=== PATIENT | female | born 1990 | race Hispanic/Latino ===

== ENCOUNTER 2018-02-26 12:49 | Emergency (ER) | payer SELFPAY ==
[2018-02-26 14:45] LABS: Basophils # (Auto) 0.1 K/mm3 (0.0-0.1); Basophils % (Auto) 0.7 % (0.0-1.8); Eosinophils # (Auto) 0.3 K/mm3 (0.0-0.4); Eosinophils % (Auto) 4.2 % (0.0-4.3); Hematocrit 38.8 % (30.3-42.9); Hemoglobin 13.3 gm/dl (10.1-14.3); Lymphocytes # (Auto) 1.9 K/mm3 (1.2-5.4); Lymphocytes % (Auto) 26.9 % (13.4-35.0); Mean Corpuscular HGB Conc 34 % (30-34); Mean Corpuscular Hemoglobin 29 pg (28-32); Mean Corpuscular Volume 85 fl (79-97); Monocytes # (Auto) 0.5 K/mm3 (0.0-0.8); Monocytes % (Auto) 7.3 % (0.0-7.3); Platelet Count 275 K/mm3 (140-440); Red Blood Count 4.56 M/mm3 (3.65-5.03); Red Cell Distribution Width 14.1 % (13.2-15.2)
[2018-02-26 14:56] LABS: BUN/Creatinine Ratio 9; Blood Urea Nitrogen 6 mg/dL (7-17); Calcium 9.3 mg/dL (8.4-10.2); Hemolysis Index 4
[2018-02-26 15:28] LABS: Bilirubin,Urine NEG (Negative); Blood,Urine MOD (Negative); Calcium Oxalate Crystals,Urine 3+; Color,Urine Yellow (Yellow); Mucus,Urine FEW /HPF; Protein,Urine <15 mg/dL mg/dL (Negative); Urobilinogen,Urine < 2.0 mg/dL (<2.0)
[2018-02-26 15:37] LABS: Benzodiazepines Screen,Urine PRESUMPTIVE NEGATIVE; Cannabinoid Screen,Urine PRESUMPTIVE NEGATIVE; Cocaine Screen,Urine PRESUMPTIVE NEGATIVE; Methadone Screen,Urine PRESUMPTIVE NEGATIVE; Opiate Screen,Urine PRESUMPTIVE NEGATIVE
[2018-02-26 15:49] LABS: Amphetamine Screen,Urine PRESUMPTIVE POSITIVE
[2018-02-26 20:58] VITALS: BP 112/79
--- NOTE | 2018-02-26 21:27 | Emergency Department Report ---
ED General Adult HPI - General Chief complaint: Medical Clearance Stated complaint: ANXIETY AND CHEST PAINS Time Seen by Provider: 02/26/18 20:50 Source: patient Mode of arrival: Ambulatory Limitations: No Limitations - History of Present Illness Initial comments: 27-year-old female with a past medical history of fibromyalgia, chronic pain management, and Chiari malformation just relocated here from [place] about 2 weeks ago presents to the hospital complaining of generalized pain. Typically patient takes oxycodone 15-30 mg 4 times a day and oxymorphone 3 times a day as well. She ran out of medication 3 days ago. She claims exacerbation of her chronic pain neck pain and back pain. She denies nausea, vomiting, or diarrhea. Patient is a smoker and reports productive cough without fever. No shortness of breath or chest pain reported. Patient is requesting follow-up for her chronic conditions. Patient's UDS positive for amphetamines she denies Adderall or amphetamine use Severity scale (0 -10): 1 - Related Data Previous Rx's Medication Instructions Recorded Last Taken Type ALBUTEROL Inhaler [ProAir HFA 2 puff IH QID PRN #1 inhalation 02/26/18 Unknown Rx Inhaler] Ibuprofen [Motrin] 800 mg PO Q8HR PRN #30 tablet 02/26/18 Unknown Rx Ondansetron [Zofran Odt] 4 mg PO Q8HR #20 tab.rapdis 02/26/18 Unknown Rx Oxycodone HCl/Acetaminophen 1 each PO Q6HR PRN #20 tablet 02/26/18 Unknown Rx [Percocet 10/325 mg] Allergies Allergy/AdvReac Type Severity Reaction Status Date / Time No Known Allergies Allergy Unverified 02/26/18 13:11 ED Review of Systems ROS: Stated complaint: ANXIETY AND CHEST PAINS Other details as noted in HPI Comment: All other systems reviewed and negative ED Past Medical Hx - Past Medical History Additional medical history: Fibromyalgia and Chiari malformation. - Surgical History Past Surgical History?: No - Social History Smoking Status: Current Every Day Smoker Substance Use Type: Other - Medications Home Medications: Home Medications Medication Instructions Recorded Confirmed Last Taken Type ALBUTEROL Inhaler [ProAir HFA 2 puff IH QID PRN #1 inhalation 02/26/18 Unknown Rx Inhaler] Ibuprofen [Motrin] 800 mg PO Q8HR PRN #30 tablet 02/26/18 Unknown Rx Ondansetron [Zofran Odt] 4 mg PO Q8HR #20 tab.rapdis 02/26/18 Unknown Rx Oxycodone HCl/Acetaminophen 1 each PO Q6HR PRN #20 tablet 02/26/18 Unknown Rx [Percocet 10/325 mg] ED Physical Exam - General Limitations: No Limitations - Other Other exam information: General: No limitations, patient is alert in no acute distress Head exam: Atraumatic, normocephalic Eyes exam: Normal appearance, pupils equal reactive to light, extraocular movements intact ENT: Moist mucous membrane, normal oropharynx Neck exam: Normal inspection, full range of motion, no meningismus nontender Respiratory exam: very minimal wheezed no tachypnea or accessory muscle use Cardiovascular: Normal rate and rhythm, normal heart sounds Abdomen: Soft, nondistended, and nontender, with normal bowel sounds, no rebound, or guarding Extremity: Full range of motion normal inspection no deformity Back: Normal Inspection, full range of motion, generalized tenderness Neurologic: Alert, oriented x3, cranial nerves intact, no motor or sensory deficit Psychiatric: normal affect, normal mood Skin: Warm, dry, intact ED Course Vital Signs 02/26/18 02/26/18 02/26/18 20:56 21:40 22:44 Temperature 98.5 F Pulse Rate 103 H Respiratory 18 18 18 Rate Blood Pressure 112/79 [Right] O2 Sat by Pulse 100 Oximetry 02/26/18 02/26/18 22:45 22:53 Temperature 98.6 F Pulse Rate 84 Respiratory 18 18 Rate Blood Pressure 112/79 [Right] O2 Sat by Pulse 98 Oximetry - Reevaluation(s) Reevaluation #1: 02/26/18 22:28 Patient continues to have pain despite IV Dilaudid 1 mg. Given additional Dilaudid and Toradol. Patient advised to follow up with primary care doctor for further referral to manage chronic pain. ED Medical Decision Making - Lab Data Result diagrams: 02/26/18 14:28 02/26/18 14:28 Lab Results 02/26/18 02/26/18 02/26/18 Range/Units 14:28 14:28 14:28 WBC (4.5-11.0) K/mm3 RBC (3.65-5.03) M/mm3 Hgb (10.1-14.3) gm/dl Hct (30.3-42.9) % MCV (79-97) fl MCH (28-32) pg MCHC (30-34) % RDW (13.2-15.2) % Plt Count (140-440) K/mm3 Lymph % (Auto) (13.4-35.0) % [place] % (Auto) (0.0-7.3) % Eos % (Auto) (0.0-4.3) % Baso % (Auto) (0.0-1.8) % Lymph # (1.2-5.4) K/mm3 [place] # (0.0-0.8) K/mm3 Eos # (0.0-0.4) K/mm3 Baso # (0.0-0.1) K/mm3 Seg Neutrophils % (40.0-70.0) % Seg Neutrophils # (1.8-7.7) K/mm3 Sodium 143 (137-145) mmol/L Potassium 3.0 L (3.6-5.0) mmol/L Chloride 104.2 (98-107) mmol/L Carbon Dioxide 24 (22-30) mmol/L Anion Gap 18 mmol/L BUN 6 L (7-17) mg/dL Creatinine 0.7 (0.7-1.2) mg/dL Estimated GFR > 60 ml/min BUN/Creatinine Ratio 9 % Glucose 94 (65-100) mg/dL Calcium 9.3 (8.4-10.2) mg/dL Magnesium (1.7-2.3) mg/dL Total Creatine Kinase (30-135) units/L Urine Color (Yellow) Urine Turbidity (Clear) Urine pH (5.0-7.0) Ur Specific [place] (1.003-1.030) Urine Protein (Negative) mg/dL Urine Glucose (UA) (Negative) mg/dL Urine Ketones (Negative) mg/dL Urine Blood (Negative) Urine Nitrite (Negative) Urine Bilirubin (Negative) Urine Urobilinogen (<2.0) mg/dL Ur Leukocyte Esterase (Negative) Urine WBC (Auto) (0.0-6.0) /HPF Urine RBC (Auto) (0.0-6.0) /HPF U Epithel Cells (Auto) (0-13.0) /HPF Calcium Oxalate Crystal Urine Mucus /HPF Urine HCG, Qual (Negative) Salicylates < 0.3 L (2.8-20.0) mg/dL Urine Opiates Screen Urine Methadone Screen Acetaminophen < 5.0 L (10.0-30.0) ug/mL Ur Barbiturates Screen Ur Phencyclidine Scrn Ur Amphetamines Screen U Benzodiazepines Scrn Urine Cocaine Screen U Marijuana (THC) Screen Drugs of Abuse Note Plasma/Serum Alcohol (0-0.07) % 02/26/18 02/26/18 02/26/18 Range/Units 14:28 14:28 14:48 WBC 7.0 (4.5-11.0) K/mm3 RBC 4.56 (3.65-5.03) M/mm3 Hgb 13.3 (10.1-14.3) gm/dl Hct 38.8 (30.3-42.9) % MCV 85 (79-97) fl MCH 29 (28-32) pg MCHC 34 (30-34) % RDW 14.1 (13.2-15.2) % Plt Count 275 (140-440) K/mm3 Lymph % (Auto) 26.9 (13.4-35.0) % [place] % (Auto) 7.3 (0.0-7.3) % Eos % (Auto) 4.2 (0.0-4.3) % Baso % (Auto) 0.7 (0.0-1.8) % Lymph # 1.9 (1.2-5.4) K/mm3 [place] # 0.5 (0.0-0.8) K/mm3 Eos # 0.3 (0.0-0.4) K/mm3 Baso # 0.1 (0.0-0.1) K/mm3 Seg Neutrophils % 60.9 (40.0-70.0) % Seg Neutrophils # 4.2 (1.8-7.7) K/mm3 Sodium (137-145) mmol/L Potassium (3.6-5.0) mmol/L Chloride (98-107) mmol/L Carbon Dioxide (22-30) mmol/L Anion Gap mmol/L BUN (7-17) mg/dL Creatinine (0.7-1.2) mg/dL Estimated GFR ml/min BUN/Creatinine Ratio % Glucose (65-100) mg/dL Calcium (8.4-10.2) mg/dL Magnesium (1.7-2.3) mg/dL Total Creatine Kinase (30-135) units/L Urine Color Yellow (Yellow) Urine Turbidity Clear (Clear) Urine pH 6.0 (5.0-7.0) Ur Specific [place] 1.011 (1.003-1.030) Urine Protein <15 mg/dl (Negative) mg/dL Urine Glucose (UA) Neg (Negative) mg/dL Urine Ketones Neg (Negative) mg/dL Urine Blood Mod (Negative) Urine Nitrite Neg (Negative) Urine Bilirubin Neg (Negative) Urine Urobilinogen < 2.0 (<2.0) mg/dL Ur Leukocyte Esterase Neg (Negative) Urine WBC (Auto) 1.0 (0.0-6.0) /HPF Urine RBC (Auto) 4.0 (0.0-6.0) /HPF U Epithel Cells (Auto) 2.0 (0-13.0) /HPF Calcium Oxalate Crystal 3+ Urine Mucus Few /HPF Urine HCG, Qual (Negative) Salicylates (2.8-20.0) mg/dL Urine Opiates Screen Urine Methadone Screen Acetaminophen (10.0-30.0) ug/mL Ur Barbiturates Screen Ur Phencyclidine Scrn Ur Amphetamines Screen U Benzodiazepines Scrn Urine Cocaine Screen U Marijuana (THC) Screen Drugs of Abuse Note Plasma/Serum Alcohol < 0.01 (0-0.07) % 02/26/18 02/26/18 02/26/18 Range/Units 14:48 Unknown Unknown WBC (4.5-11.0) K/mm3 RBC (3.65-5.03) M/mm3 Hgb (10.1-14.3) gm/dl Hct (30.3-42.9) % MCV (79-97) fl MCH (28-32) pg MCHC (30-34) % RDW (13.2-15.2) % Plt Count (140-440) K/mm3 Lymph % (Auto) (13.4-35.0) % [place] % (Auto) (0.0-7.3) % Eos % (Auto) (0.0-4.3) % Baso % (Auto) (0.0-1.8) % Lymph # (1.2-5.4) K/mm3 [place] # (0.0-0.8) K/mm3 Eos # (0.0-0.4) K/mm3 Baso # (0.0-0.1) K/mm3 Seg Neutrophils % (40.0-70.0) % Seg Neutrophils # (1.8-7.7) K/mm3 Sodium (137-145) mmol/L Potassium (3.6-5.0) mmol/L Chloride (98-107) mmol/L Carbon Dioxide (22-30) mmol/L Anion Gap mmol/L BUN (7-17) mg/dL Creatinine (0.7-1.2) mg/dL Estimated GFR ml/min BUN/Creatinine Ratio % Glucose (65-100) mg/dL Calcium (8.4-10.2) mg/dL Magnesium 2.00 (1.7-2.3) mg/dL Total Creatine Kinase 112 (30-135) units/L Urine Color (Yellow) Urine Turbidity (Clear) Urine pH (5.0-7.0) Ur Specific [place] (1.003-1.030) Urine Protein (Negative) mg/dL Urine Glucose (UA) (Negative) mg/dL Urine Ketones (Negative) mg/dL Urine Blood (Negative) Urine Nitrite (Negative) Urine Bilirubin (Negative) Urine Urobilinogen (<2.0) mg/dL Ur Leukocyte Esterase (Negative) Urine WBC (Auto) (0.0-6.0) /HPF Urine RBC (Auto) (0.0-6.0) /HPF U Epithel Cells (Auto) (0-13.0) /HPF Calcium Oxalate Crystal Urine Mucus /HPF Urine HCG, Qual Negative (Negative) Salicylates (2.8-20.0) mg/dL Urine Opiates Screen Presumptive negative Urine Methadone Screen Presumptive negative Acetaminophen (10.0-30.0) ug/mL Ur Barbiturates Screen Presumptive negative Ur Phencyclidine Scrn Presumptive negative Ur Amphetamines Screen Presumptive positive U Benzodiazepines Scrn Presumptive negative Urine Cocaine Screen Presumptive negative U Marijuana (THC) Screen Presumptive negative Drugs of Abuse Note Disclamer Plasma/Serum Alcohol (0-0.07) % - Radiology Data Radiology results: report reviewed cxr IMPRESSION: No acute cardiopulmonary process seen. - Medical Decision Making pt's ekg was performed after initial recorded shows a heart rate of 89. Tachycardia resolved prior to treatment patient received Dilaudid, Zofran, and 1 L normal saline with some improvement of pain. Chest x-ray does not reveal any acute infection. She received by mouth potassium for mild hypokalemia. UDS positive for amphetamines which patient denies amphetamine abuse. No signs of rhabdomyolysis. Patient's symptoms are ongoing and chronic. Patient needs to follow-up with her primary care doctor, neurologist, and pain management doctor. She provided outpatient resources and meds for pain for several days. Albuterol prn will be provided for bronchitis. Likely viral, no infiltrate - Differential Diagnosis chronic pain, pain exacerbation, drug abuse, bronchitis, pneumonia Critical Care Time: No Critical care attestation.: If time is entered above; I have spent that time in minutes in the direct care of this critically ill patient, excluding procedure time. ED Disposition Clinical Impression: Chronic pain, Acute bronchitis Disposition: TO HOME OR SELFCARE Is pt being admited?: No Condition: Stable Instructions: Chronic Pain (ED), Acute Bronchitis (ED) Additional Instructions: Take the medication as prescribed. Follow-up with the clinic or the doctors provided. Given your complicated neurologic history you may benefit from follow -up at [place]. Prescriptions: ALBUTEROL Inhaler [ProAir HFA Inhaler] 2 puff IH QID PRN #1 inhalation PRN Reason: Shortness Of Breath Ibuprofen [Motrin] 800 mg PO Q8HR PRN #30 tablet PRN Reason: Pain Ondansetron [Zofran Odt] 4 mg PO Q8HR #20 tab.rapdis Oxycodone HCl/Acetaminophen [Percocet 10/325 mg] 1 each PO Q6HR PRN #20 tablet PRN Reason: Pain Referrals: [facility] [Provider Group] - 3-5 Days (Primary care clinic) ANNA VIVAS MD [Staff Physician] - 3-5 Days (Primary care doctor) HELENA SAMANIEGO MD [Staff Physician] - 3-5 Days (Neurologist) Time of Disposition: 23:03
[2018-02-26 21:30] LABS: HCG Qualitative,Urine Negative (Negative)
[2018-02-26] MEDS: K-DUR PO ONE (21:40)
[2018-02-26] MEDS: DILAUDID IV ONE ×2 (21:40→22:44)
[2018-02-26] MEDS: NACL 0.9% 1000 ML 1,000 ML IV ONE (21:40)
[2018-02-26] MEDS: ZOFRAN IV ONE (21:40)
--- NOTE | 2018-02-26 22:26 | XRay Report ---
FINAL REPORT EXAM: XR CHEST ROUTINE 2V HISTORY: productive cough TECHNIQUE: PA and lateral views of the chest PRIORS: None. FINDINGS: Lines, tubes, and devices: N/A Lungs and pleura: Trachea is normal in position. Lungs are clear of infiltrate, pleural effusion, vascular congestion, or pneumothorax. Cardiomediastinal silhouette: Cardiac and mediastinal silhouettes are unremarkable. Other: Bony structures are intact. IMPRESSION: No acute cardiopulmonary process seen.
[2018-02-26] MEDS: TORADOL IV ONE (22:45)
== END 2018-02-26 23:16 | disposition home or self-care (01) ==
LOC: ED 12:49
DX: J20.9 Acute bronchitis, unspecified (principal); M79.1 Myalgia; G89.29 Other chronic pain
CPT/HCPCS: 36415; 71046; 80048; 80307; 81001; 81025; 82550; 83735; 85025; 93005; 93010; 96361; 96374; 96375; 96376; 99284; G0480; J1170; J1885; J2405; J7030; 80320

== ENCOUNTER 2018-03-24 13:26 | Emergency (ER) | payer SELFPAY ==
[2018-03-24 15:36] LABS: Bacteria,Urine 1+ /HPF (Negative); Bilirubin,Urine NEG (Negative); Blood,Urine NEG (Negative); Color,Urine Yellow (Yellow); Mucus,Urine FEW /HPF; Protein,Urine <15 mg/dL mg/dL (Negative); Urobilinogen,Urine < 2.0 mg/dL (<2.0)
[2018-03-24 15:41] LABS: HCG Qualitative,Urine Negative (Negative)
--- NOTE | 2018-03-24 20:41 | Emergency Department Report ---
ED Abdominal Pain HPI - General Chief Complaint: Abdominal Pain Stated Complaint: KIDNEY STONES Time Seen by Provider: 03/24/18 20:41 Source: patient Mode of arrival: Ambulatory Limitations: No Limitations - History of Present Illness Initial Comments: Patient complains of bilateral lower abdominal pain and was status started to walk this evening. She said these are similar to her previous kidney stone that she passed a stone to him. Patient's also worried that she may be having a pelvic pathology. She said "I want a pelvic exam done". MD Complaint: abdominal pain, flank pain -: Sudden Location: L flank, R flank Radiation: other (Bilateral groin.) Migration to: no migration Severity: severe Severity scale (0 -10): 8 Quality: sharp Improves With: medication (Dilaudid) Worsens With: nothing Associated Symptoms: denies other symptoms - Related Data Previous Rx's Medication Instructions Recorded Last Taken Type ALBUTEROL Inhaler [ProAir HFA 2 puff IH QID PRN #1 inhalation 02/26/18 Unknown Rx Inhaler] Ibuprofen [Motrin] 800 mg PO Q8HR PRN #30 tablet 02/26/18 Unknown Rx Ondansetron [Zofran Odt] 4 mg PO Q8HR #20 tab.rapdis 02/26/18 Unknown Rx Oxycodone HCl/Acetaminophen 1 each PO Q6HR PRN #20 tablet 02/26/18 Unknown Rx [Percocet 10/325 mg] Ketorolac [Toradol] 10 mg PO Q6H PRN #20 tablet 03/25/18 Unknown Rx Ondansetron [Zofran Odt] 4 mg PO Q8HR PRN #15 tab.rapdis 03/25/18 Unknown Rx Allergies Allergy/AdvReac Type Severity Reaction Status Date / Time No Known Allergies Allergy Unverified 02/26/18 13:11 ED Review of Systems ROS: Stated complaint: KIDNEY STONES Other details as noted in HPI Comment: All other systems reviewed and negative Constitutional: denies: chills, fever Eyes: denies: vision change ENT: denies: ear pain, hearing loss Respiratory: denies: cough, shortness of breath Cardiovascular: denies: chest pain, palpitations, syncope Endocrine: no symptoms reported Gastrointestinal: abdominal pain. denies: nausea, vomiting, diarrhea, constipation Genitourinary: denies: urgency, dysuria, frequency Musculoskeletal: denies: back pain, joint swelling Skin: denies: rash, lesions, change in color Neurological: denies: headache, weakness, numbness, paresthesias Psychiatric: anxiety. denies: depression Hematological/Lymphatic: denies: easy bleeding, easy bruising ED Past Medical Hx - Past Medical History Previous Medical History?: Yes Additional medical history: Fibromyalgia and Chiari malformation. - Surgical History Past Surgical History?: No Additional Surgical History: bronchoscopy - Social History Smoking Status: Current Every Day Smoker Substance Use Type: None - Medications Home Medications: Home Medications Medication Instructions Recorded Confirmed Last Taken Type ALBUTEROL Inhaler [ProAir HFA 2 puff IH QID PRN #1 inhalation 02/26/18 Unknown Rx Inhaler] Ibuprofen [Motrin] 800 mg PO Q8HR PRN #30 tablet 02/26/18 Unknown Rx Ondansetron [Zofran Odt] 4 mg PO Q8HR #20 tab.rapdis 02/26/18 Unknown Rx Oxycodone HCl/Acetaminophen 1 each PO Q6HR PRN #20 tablet 02/26/18 Unknown Rx [Percocet 10/325 mg] Ketorolac [Toradol] 10 mg PO Q6H PRN #20 tablet 03/25/18 Unknown Rx Ondansetron [Zofran Odt] 4 mg PO Q8HR PRN #15 tab.rapdis 03/25/18 Unknown Rx ED Physical Exam - General Limitations: No Limitations General appearance: alert, anxious, in distress - Head Head exam: Present: atraumatic, normocephalic, normal inspection - Eye Eye exam: Present: normal appearance, PERRL, EOMI Pupils: Present: normal accommodation - ENT ENT exam: Present: normal exam, normal orophraynx, mucous membranes moist - Neck Neck exam: Present: normal inspection, full ROM. Absent: tenderness - Respiratory Respiratory exam: Present: normal lung sounds bilaterally. Absent: respiratory distress, wheezes, rales, rhonchi - Cardiovascular Cardiovascular Exam: Present: regular rate, normal rhythm, normal heart sounds - GI/Abdominal GI/Abdominal exam: Present: soft, distended, tenderness (Lower abdomen), normal bowel sounds. Absent: guarding, rebound - Rectal Rectal exam: Present: deferred - External exam: Present: normal external exam. Absent: lesions, bleeding Speculum exam: Present: vaginal discharge. Absent: vaginal bleeding, foreign body, tissue, laceration Bi-manual exam: Present: adnexal tenderness, other (Female charperone was Ms. Nimo RN.). Absent: cervical motion tendernes, adnexal mass, uterine enlargement, uterine tenderness - Extremities Exam Extremities exam: Present: normal inspection, full ROM, normal capillary refill. Absent: tenderness - Back Exam Back exam: Present: normal inspection, full ROM. Absent: tenderness - Neurological Exam Neurological exam: Present: alert, oriented X3, CN II-XII intact - Psychiatric Psychiatric exam: Present: agitated, anxious - Skin Skin exam: Present: warm, dry, intact, normal color. Absent: rash ED Course Vital Signs 03/24/18 03/24/18 03/24/18 14:54 20:50 22:31 Temperature 98.1 F Pulse Rate 112 H 82 Respiratory 18 18 18 Rate Blood Pressure 124/73 Blood Pressure 130/82 [Left] O2 Sat by Pulse 99 100 99 Oximetry 03/24/18 23:07 Temperature Pulse Rate Respiratory 18 Rate Blood Pressure Blood Pressure [Left] O2 Sat by Pulse Oximetry ED Medical Decision Making - Lab Data Result diagrams: 03/24/18 21:00 03/24/18 21:00 - Radiology Data Radiology results: report reviewed, image reviewed - Medical Decision Making Lower Abdominal Pain. Critical care attestation.: If time is entered above; I have spent that time in minutes in the direct care of this critically ill patient, excluding procedure time. ED Disposition Clinical Impression: Abdominal pain Qualifiers: Abdominal location: lower abdomen, unspecified Qualified Code(s): R10.30 - Lower abdominal pain, unspecified Disposition: TO HOME OR SELFCARE Is pt being admited?: No Does the pt Need Aspirin: No Condition: Stable Instructions: Abdominal Pain (ED) Additional Instructions: Please follow up with Dr Cardenas tomorrow morning. Return to the ED if your condition worsens. Prescriptions: Ketorolac [Toradol] 10 mg PO Q6H PRN #20 tablet PRN Reason: Pain Ondansetron [Zofran Odt] 4 mg PO Q8HR PRN #15 tab.rapdis PRN Reason: Nausea And Vomiting Referrals: PRIMARY CARE, [Primary Care Provider] - 3-5 Days ARMEN CARDENAS MD [Staff Physician] - 3-5 Days Time of Disposition: 00:49
[2018-03-24] MEDS ORDERED: NACL 0.9% 1000 ML 1,000 ML IV ONE (20:50)
[2018-03-24] MEDS ORDERED: TORADOL IV ONE (20:50)
[2018-03-24] MEDS ORDERED: ZOFRAN IV ONE (20:50)
[2018-03-24 21:21] LABS: Basophils # (Auto) 0.1 K/mm3 (0.0-0.1); Eosinophils # (Auto) 0.1 K/mm3 (0.0-0.4); Hematocrit 36.8 % (30.3-42.9); Hemoglobin 12.7 gm/dl (10.1-14.3); Lymphocytes # (Auto) 2.5 K/mm3 (1.2-5.4); Lymphocytes % (Auto) 38.6 % (13.4-35.0); Mean Corpuscular HGB Conc 35 % (30-34); Mean Corpuscular Hemoglobin 30 pg (28-32); Mean Corpuscular Volume 88 fl (79-97); Monocytes # (Auto) 0.5 K/mm3 (0.0-0.8); Monocytes % (Auto) 7.2 % (0.0-7.3); Platelet Count 269 K/mm3 (140-440); Red Cell Distribution Width 15.1 % (13.2-15.2)
--- NOTE | 2018-03-24 21:26 | Cat Scan Report ---
FINAL REPORT PROCEDURE: CT ABDOMEN PELVIS WO CON TECHNIQUE: Computerized axial tomography of the abdomen and pelvis was performed without intravenous contrast. This study is performed without intravascular contrast material and its sensitivity for abdominal and pelvic pathology, including neoplasms, inflammation, abscess, free fluid, thrombosis, arterial dissection and infarction, is reduced compared with a contrast enhanced study. HISTORY: abdominal pain COMPARISON: No prior studies are available for comparison. FINDINGS: Liver, spleen, pancreas and adrenal glands are within normal limits. Bilateral kidneys demonstrate normal density without calculi or hydronephrosis. Aorta is of normal caliber. There is no free fluid or free air. Gallbladder is contracted. Small bowel loops are within normal limits. Moderate degree residual stool is noted. Appendix is unremarkable. Vertebral height is normal.. IMPRESSION: No acute intra-abdominal or pelvic pathology. Gallbladder is contracted which is most likely secondary to postprandial status. Moderate degree residual stool..
[2018-03-24] MEDS ORDERED: DILAUDID IV ONE ×2 (21:32→22:59)
[2018-03-24 21:40] LABS: Alanine Aminotransferase 33 units/L (7-56); Albumin 4.5 g/dL (3.9-5); BUN/Creatinine Ratio 15; Blood Urea Nitrogen 9 mg/dL (7-17); Calcium 8.8 mg/dL (8.4-10.2); Hemolysis Index 15; Lipase 31 units/L (13-60)
[2018-03-24 22:33] VITALS: BP 130/82
--- NOTE | 2018-03-24 23:52 | Ultrasound Report ---
FINAL REPORT PROCEDURE: US TRANSVAGINAL TECHNIQUE: Real-time transvaginal sonography in multiple planes of the pelvis was performed with image documentation. This examination was performed without Doppler. Vascular abnormalities, including ovarian torsion, will not be detectable without Doppler evaluation. CPT 37823 HISTORY: Pelvic pain COMPARISON: No prior studies are available for comparison. FINDINGS: UTERUS Size: 7 x 3 x 4 cm. Endometrial thickness: 6 mm. Orientation: anteverted. Cervix: Normal. Fibroids/masses: None. RIGHT Ovary: 3.1 x 2.3 x 2.2 cm. Appearance: Normal with normal Doppler flow. LEFT Ovary: 3.1 x 1.9 x 1.8 cm. Appearance: Normal with normal Doppler flow. Pelvic fluid: None. Other: None. IMPRESSION: Unremarkable study.
--- NOTE | 2018-03-24 23:54 | Ultrasound Report ---
FINAL REPORT PROCEDURE: US PELVIC COMPLETE TECHNIQUE: Real-time transvaginal sonography in multiple planes of the pelvis was performed with image documentation. This examination was performed without Doppler. Vascular abnormalities, including ovarian torsion, will not be detectable without Doppler evaluation. CPT 96569 HISTORY: Pelvic pain COMPARISON: No prior studies are available for comparison. FINDINGS: UTERUS Size: 7 x 3 x 4 cm. Endometrial thickness: 6 mm. Orientation: anteverted. Cervix: Normal. Fibroids/masses: None. RIGHT Ovary: 3.1 x 2.3 x 2.2 cm. Appearance: Normal with normal Doppler flow. LEFT Ovary: 3.1 x 1.9 x 1.8 cm. Appearance: Normal with normal Doppler flow. Pelvic fluid: None. Other: None. IMPRESSION: Unremarkable study
[2018-03-25] MEDS ORDERED: TYLENOL PO ONE (00:45)
== END 2018-03-25 01:02 | disposition home or self-care (01) ==
LOC: ED 13:26
DX: R10.31 Right lower quadrant pain (principal); R10.32 Left lower quadrant pain; F41.9 Anxiety disorder, unspecified; F17.200 Nicotine dependence, unspecified, uncomplicated
CPT/HCPCS: 36415; 74176; 76830; 76856; 80053; 81001; 81025; 83690; 85025; 87210; 87591; 96374; 96375; 96376; 99284; J1170; J1885; J2405; J7030; 96361